=== PATIENT | male | born 1955 | race Caucasian/White ===

== ENCOUNTER 2016-12-12 18:41 | Emergency (ER) | payer BC ==
[2016-12-12 19:29] LABS: BASO % 0.3 % (0.2-1.2); EOS # 0.1 10_X3_uL (0.0-0.5); GRAN # 3.9 10_X3_uL (1.8-5.4); GRAN % 63.6 % (34.0-67.9); HEMATOCRIT 39.6 % (40-51); HEMOGLOBIN 11.8 g/dL (13.7-17.5); LYMPH # 1.4 10_X3_uL (1.3-3.6); LYMPH % 22.5 % (21.8-53.1); MEAN CORPUSCULAR HEMOGLOBIN 23.6 pg (27.0-33.0); MEAN CORPUSCULAR HGB CONC 29.8 g/dL (32.0-36.0); MEAN PLATELET VOLUME 10.8 fl (7.5-11.5); MONO # 0.7 10_X3_uL (0.3-0.8); MONO % 11.6 % (5.3-12.2); PLATELET COUNT 192 x10_3/uL (163-337); RED BLOOD COUNT 5.01 x10_6/uL (4.6-6.1); RED CELL DISTRIBUTION WIDTH 16.1 % (11.6-14.4); WHITE BLOOD COUNT 6.1 x10_3/uL (4.2-9.1)
[2016-12-12 19:47] LABS: BLOOD UREA NITROGEN 14 mg/dL (7-18); CALCIUM 8.4 mg/dL (8.7-10.7); CARBON DIOXIDE 25 mmol/L (21-32); CREATINE KINASE 75 U/L (35-232); CREATININE 0.8 mg/dL (0.6-1.3); GLUCOSE,RANDOM 147 mg/dL (70-99); POTASSIUM 4.1 mmol/L (3.5-5.1); SODIUM 138 mmol/L (136-145)
== END 2016-12-12 22:24 | disposition home or self-care (01) ==
LOC: ER 18:41
PROVIDERS: Internal Medicine
DX: J81.1 Chronic pulmonary edema (principal); R60.0 Localized edema; R06.09 Other forms of dyspnea; I51.7 Cardiomegaly; J90 Pleural effusion, not elsewhere classified; I48.91 Unspecified atrial fibrillation; I10 Essential (primary) hypertension; Z95.0 Presence of cardiac pacemaker; Z79.899 Other long term (current) drug therapy; Z79.891 Long term (current) use of opiate analgesic; Z79.01 Long term (current) use of anticoagulants
CPT/HCPCS: 36415; 71020; 71260; 80048; 82550; 82553; 83880; 85025; 85379; 93005; 99070; 99284-25; J7040; Q9967